=== PATIENT | male | born 1950 | race Caucasian/White ===

== ENCOUNTER 2017-09-16 21:48 | Inpatient (IN) | payer OTHER ==
[~2017-09-16] VITALS: Ht 172.7 cm; Wt 98.1 kg
[2017-09-16 21:57] VITALS: Ht 172.7 cm; Wt 98.1 kg
[2017-09-16 22:57] LABS: BASOPHIL % 0.4 % (0-2); PLATELET COUNT 262 x10^3mcL (130-400); RED CELL DISTRIBUTION WIDTH 14.5 % (11.5-14.5)
[2017-09-16 22:59] LABS: CALCIUM 8.5 mg/dL (8.5-10.1); CHLORIDE SERUM 101 mmol/L (98-107); CREATININE SERUM 0.9 mg/dL (0.7-1.3); GFR1 > 60 mL/min; GLUCOSE SERUM 122 mg/dL (74-106); POTASSIUM SERUM 3.9 mmol/L (3.5-5.1); SODIUM SERUM 138 mmol/L (136-145)
[2017-09-16 23:11] LABS: ALBUMIN 3.6 g/dL (3.4-5.0); ALKALINE PHOSPHATASE 123 U/L (46-116); ALT/SGPT 46 U/L (16-63); AST/SGOT 19 U/L (15-37); BILIRUBIN TOTAL 0.3 mg/dL (0.20-1.00); FREE T4 0.93 ng/dL (0.76-1.46); TOTAL PROTEIN, SERUM 7.7 g/dL (6.4-8.2)
[2017-09-17 00:41] LABS: MAGNESIUM 1.6 mg/dL (1.8-2.4); PHOSPHOROUS 2.3 mg/dL (2.5-4.9)
[2017-09-17] MEDS ORDERED: LOSARTAN POTASS1 TA8 PO (00:51)
[2017-09-17 00:52] VITALS: BP 117/64
[2017-09-17 00:52] LABS: FREE T4 0.93 ng/dL (0.76-1.46); FREE THYROXINE INDEX 2.5 ug/dL (1.4-4.5); T4(THYROXINE) 7.7 ug/dL (4.7-13.3)
[2017-09-17 02:11] LABS: T3 TOTAL 1.18 ng/mL
[2017-09-17] MEDS ORDERED: VENTOLIN H0.09 MG/A1 INH (02:11)
[2017-09-17] MEDS ORDERED: SYMBICORT1 AE2 INH (02:13)
[2017-09-17 03:30] LABS: microscopic required? NO
[2017-09-17 03:37] LABS: UA SPECIFIC GRAVITY >=1.030 (1.005-1.035); urine erythrocyte NEGATIVE (NEGATIVE)
[2017-09-17 03:46] LABS: AMPHETAMINE QUAL UR NONE DETECTED (NEG <=1000)
[2017-09-17 06:10] VITALS: BP 99/51
[2017-09-17 06:47] LABS: PLATELET COUNT 241 x10^3mcL (130-400); RED CELL DISTRIBUTION WIDTH 14.3 % (11.5-14.5)
[2017-09-17 07:02] LABS: BASOPHIL % 0 % (0-2)
[2017-09-17 09:10] VITALS: BP 140/81
[2017-09-17 10:45] LABS: CALCIUM 8.6 mg/dL (8.5-10.1); CARBON DIOXIDE 23.4 mmol/L (21-32); CHLORIDE SERUM 101 mmol/L (98-107); CREATININE SERUM 1.1 mg/dL (0.7-1.3); GFR1 > 60 mL/min; GLUCOSE SERUM 181 mg/dL (74-106); MAGNESIUM 2.3 mg/dL (1.8-2.4); PHOSPHOROUS 2.7 mg/dL (2.5-4.9); POTASSIUM SERUM 4.3 mmol/L (3.5-5.1); SODIUM SERUM 139 mmol/L (136-145)
[2017-09-17 14:38] VITALS: BP 126/61
[2017-09-17 17:07] VITALS: BP 119/50
[2017-09-17 20:25] VITALS: BP 120/62
[2017-09-18 04:58] VITALS: BP 136/67
[2017-09-18 06:19] LABS: BASOPHIL % 0.3 % (0-2); PLATELET COUNT 251 x10^3mcL (130-400)
[2017-09-18 06:56] LABS: CALCIUM 8.6 mg/dL (8.5-10.1); CARBON DIOXIDE 26.8 mmol/L (21-32); CHLORIDE SERUM 101 mmol/L (98-107); CREATININE SERUM 1.2 mg/dL (0.7-1.3); GFR1 > 60 mL/min; GLUCOSE SERUM 169 mg/dL (74-106); MAGNESIUM 2.4 mg/dL (1.8-2.4); PHOSPHOROUS 3.4 mg/dL (2.5-4.9); POTASSIUM SERUM 3.9 mmol/L (3.5-5.1); SODIUM SERUM 140 mmol/L (136-145)
[2017-09-18 09:15] VITALS: BP 106/67
[2017-09-18 13:52] VITALS: BP 113/64
[2017-09-18 17:31] VITALS: BP 141/74
[2017-09-18 20:27] VITALS: BP 126/65
[2017-09-19 05:29] VITALS: BP 139/75
[2017-09-19 07:30] LABS: BASOPHIL % 0.2 % (0-2); PLATELET COUNT 252 x10^3mcL (130-400)
[2017-09-19 07:50] LABS: RED CELL DISTRIBUTION WIDTH 15.2 % (11.5-14.5)
[2017-09-19 08:34] LABS: CALCIUM 8.6 mg/dL (8.5-10.1); CHLORIDE SERUM 103 mmol/L (98-107); CREATININE SERUM 0.9 mg/dL (0.7-1.3); GFR1 > 60 mL/min; GLUCOSE SERUM 113 mg/dL (74-106); SODIUM SERUM 143 mmol/L (136-145)
[2017-09-19 09:43] VITALS: BP 130/72
[2017-09-19 14:08] VITALS: BP 118/65
[2017-09-19 19:05] VITALS: BP 118/68
[2017-09-19 21:26] VITALS: BP 124/81
[2017-09-20 06:12] VITALS: BP 133/79
[2017-09-20 06:22] LABS: CALCIUM 8.6 mg/dL (8.5-10.1); CARBON DIOXIDE 32.7 mmol/L (21-32); CHLORIDE SERUM 104 mmol/L (98-107); CREATININE SERUM 0.9 mg/dL (0.7-1.3); GFR1 > 60 mL/min; GLUCOSE SERUM 105 mg/dL (74-106); POTASSIUM SERUM 4.3 mmol/L (3.5-5.1); SODIUM SERUM 143 mmol/L (136-145)
[2017-09-20 07:32] LABS: BASOPHIL % 0.3 % (0-2); PLATELET COUNT 245 x10^3mcL (130-400)
[2017-09-20 07:33] LABS: RED CELL DISTRIBUTION WIDTH 15.1 % (11.5-14.5)
[2017-09-20 08:19] VITALS: BP 120/59
[2017-09-20 14:08] VITALS: BP 106/56
[2017-09-20] MEDS ORDERED: LOSARTAN POTASS1 TA8 PO (14:36)
[2017-09-20] MEDS ORDERED: SYMBICORT1 AE2 INH (14:37)
[2017-09-20] MEDS ORDERED: ECO81 PO (14:50)
[2017-09-20] MEDS ORDERED: MEDDP PO (14:50)
[2017-09-20] MEDS ORDERED: COZ50 PO (14:50)
[2017-09-20] MEDS ORDERED: ALD25 PO (14:50)
[2017-09-20] MEDS ORDERED: LAC PO (14:58)
[2017-09-20] MEDS ORDERED: LEVAQUIN750 MG PO (14:58)
[2017-09-20 15:15] VITALS: BP 106/56
[2017-09-20 17:39] VITALS: BP 126/73
== END 2017-09-20 20:12 | disposition home health service (06) | DRG 177 ==
LOC: ED 21:48 → DU 23:41
PROVIDERS: Emergency Medicine; Family Medicine Sports Medicine
DX: J69.0 Pneumonitis due to inhalation of food and vomit (principal); N17.0 Acute kidney failure with tubular necrosis; J44.1 Chronic obstructive pulmonary disease with (acute) exacerbation; F10.288 Alcohol dependence with other alcohol-induced disorder; R06.03 Acute respiratory distress; R60.1 Generalized edema; K70.30 Alcoholic cirrhosis of liver without ascites; I48.0 Paroxysmal atrial fibrillation; E11.65 Type 2 diabetes mellitus with hyperglycemia; I10 Essential (primary) hypertension; E78.5 Hyperlipidemia, unspecified; E66.9 Obesity, unspecified; Z68.32 Body mass index [BMI] 32.0-32.9, adult; Z87.891 Personal history of nicotine dependence
CPT/HCPCS: 36600; 82962; 83880; 84439; 87804; 94150; 97110-GP; 97116-GP; 97530-GP; G0480; J1644; J1940; J1956; J2543; J2920; J2930; J3475; J3490; J7030; J7620; J7626; Q0092

== ENCOUNTER 2017-12-04 20:49 | Observation (INO) | payer OTHER ==
[~2017-12-04] VITALS: Ht 172.7 cm; Wt 99.4 kg
[~2017-12-04 20:49] MED LIST: ALD25 PO; COZ50 PO; ECO81 PO; LAC PO; LEVAQUIN750 MG PO; LOSARTAN POTASS1 TA8 PO; MEDDP PO; SYMBICORT1 AE2 INH; VENTOLIN H0.09 MG/A1 INH
[2017-12-04 21:05] VITALS: Ht 172.7 cm; Wt 99.4 kg
[2017-12-04 21:53] LABS: PLATELET COUNT 315 x10^3mcL (130-400); RED CELL DISTRIBUTION WIDTH 14.5 % (11.5-14.5)
[2017-12-04 21:56] LABS: BASOPHIL % 0 % (0-2)
[2017-12-04 22:33] LABS: CALCIUM 8.3 mg/dL (8.5-10.1); CARBON DIOXIDE 29.2 mmol/L (21-32); CHLORIDE SERUM 100 mmol/L (98-107); CREATININE SERUM 0.9 mg/dL (0.7-1.3); GFR1 > 60 mL/min; GLUCOSE SERUM 114 mg/dL (74-106); POTASSIUM SERUM 4.5 mmol/L (3.5-5.1); SODIUM SERUM 138 mmol/L (136-145)
[2017-12-04 22:38] LABS: ALKALINE PHOSPHATASE 106 U/L (46-116); ALT/SGPT 52 U/L (16-63); AST/SGOT 36 U/L (15-37); BILIRUBIN TOTAL 0.56 mg/dL (0.20-1.00); TOTAL PROTEIN, SERUM 7.4 g/dL (6.4-8.2)
[2017-12-04 22:44] LABS: ALBUMIN 3.1 g/dL (3.4-5.0)
[2017-12-05] VITALS (7 sets, daily range): BP systolic 112–152; BP diastolic 49–64
[2017-12-05] MEDS ORDERED: LIPITOR40 MG PO (00:48)
[2017-12-05] MEDS ORDERED: ATORVASTATIN CA40 M1 PO (00:49)
[2017-12-05] MEDS ORDERED: D3-50001 TAB PO (00:49)
[2017-12-05] MEDS ORDERED: [UNRECOGNIZED DRUG - CODE] SC (00:50)
[2017-12-05 01:34] LABS: MAGNESIUM 1.9 mg/dL (1.8-2.4)
[2017-12-05 01:35] LABS: CHOLESTEROL/HDL RATIO 5.2
[2017-12-05 01:46] LABS: T3 TOTAL 1.08 ng/mL
[2017-12-05 01:52] LABS: FREE T4 1.21 ng/dL (0.76-1.46); FREE THYROXINE INDEX 3.1 ug/dL (1.4-4.5); T4(THYROXINE) 8.7 ug/dL (4.7-13.3)
[2017-12-05 06:00] LABS: microscopic required? NO
[2017-12-05 06:16] LABS: AMPHETAMINE QUAL UR NONE DETECTED
[2017-12-05 06:53] LABS: CALCIUM 7.7 mg/dL (8.5-10.1); CARBON DIOXIDE 26.6 mmol/L (21-32); CHLORIDE SERUM 103 mmol/L (98-107); CREATININE SERUM 0.8 mg/dL (0.7-1.3); GFR1 > 60 mL/min; GLUCOSE SERUM 103 mg/dL (74-106); POTASSIUM SERUM 3.8 mmol/L (3.5-5.1); SODIUM SERUM 139 mmol/L (136-145)
[2017-12-05 07:15] LABS: BASOPHIL % 0.3 % (0-2); PLATELET COUNT 267 x10^3mcL (130-400)
[2017-12-05 07:16] LABS: RED CELL DISTRIBUTION WIDTH 14.7 % (11.5-14.5)
[2017-12-05 07:26] LABS: UA SPECIFIC GRAVITY <=1.005 (1.005-1.035); urine erythrocyte NEGATIVE (NEGATIVE)
[2017-12-05 07:58] LABS: CHOLESTEROL/HDL RATIO 5.5
[2017-12-06 05:38] VITALS: BP 120/56
[2017-12-06 07:08] LABS: CALCIUM 8.5 mg/dL (8.5-10.1); CARBON DIOXIDE 27.2 mmol/L (21-32); CHLORIDE SERUM 103 mmol/L (98-107); CREATININE SERUM 0.8 mg/dL (0.7-1.3); GFR1 > 60 mL/min; GLUCOSE SERUM 120 mg/dL (74-106); PHOSPHOROUS 3.6 mg/dL (2.5-4.9); POTASSIUM SERUM 3.9 mmol/L (3.5-5.1); SODIUM SERUM 140 mmol/L (136-145)
[2017-12-06 08:00] LABS: BASOPHIL % 0.8 % (0-2); PLATELET COUNT 312 x10^3mcL (130-400)
[2017-12-06 08:50] VITALS: BP 150/69
[2017-12-06] MEDS ORDERED: LEVAQUIN750 MG PO (09:06)
[2017-12-06] MEDS ORDERED: FLA500 PO (09:07)
[2017-12-06] MEDS ORDERED: LAC PO (09:08)
[2017-12-06 12:08] VITALS: BP 150/69
== END 2017-12-06 13:13 | disposition home or self-care (01) | DRG 872 ==
LOC: ED 20:49 → DU 12-05 00:56 → MU 12-05 11:06
PROVIDERS: Emergency Medicine; Student in an Organized Health Care Education/Training Program
DX: A41.9 Sepsis, unspecified organism (principal); L02.215 Cutaneous abscess of perineum; E44.0 Moderate protein-calorie malnutrition; E11.65 Type 2 diabetes mellitus with hyperglycemia; J44.9 Chronic obstructive pulmonary disease, unspecified; E83.51 Hypocalcemia; E83.39 Other disorders of phosphorus metabolism; D64.9 Anemia, unspecified; E78.5 Hyperlipidemia, unspecified; I10 Essential (primary) hypertension; E66.9 Obesity, unspecified; F10.20 Alcohol dependence, uncomplicated; K42.9 Umbilical hernia without obstruction or gangrene; Z68.33 Body mass index [BMI] 33.0-33.9, adult
CPT/HCPCS: 82962; 84439; 90715; 94150; G0378; G0480; J1885; J1956; J3490; J7030; J7620; J7633; Q0092

== ENCOUNTER 2019-01-01 09:35 | Inpatient (IN) | payer OTHER ==
[~2019-01-01] VITALS: Ht 172.7 cm; Wt 91.6 kg
[~2019-01-01 09:35] MED LIST changes: +ATORVASTATIN CA40 M1 PO; +D3-50001 TAB PO; +FLA500 PO; +LIPITOR40 MG PO; +[UNRECOGNIZED DRUG - CODE] SC
[2019-01-01 09:37] VITALS: Ht 172.7 cm; Wt 91.6 kg
--- NOTE | 2019-01-01 09:45 | NUR ---
PATIENT PRESENTS TO ED WITH SOB THAT HE STS STARTED LAST NIGHT. PATIENT DOES HAVE COPD AND HAS CHRONIC ISSUES WITH SOB, STS THAT HE IS CONSTANTLY ON OXYGEN AND HAS HIS OWN PORTABLE SUPPLY. PORTABLE OXYGEN WAS BIB PATIENT AND SITTING AT BEDSIDE. PATIENT WAS WHEELED INTO BEDSIDE, WAS ABLE TO AMBULATE FROM WHEELCHAIR TO BEDSIDE. BREATHING IS LABORED WITH BILATERAL CHEST RISE NOTED. CRACKLES NOTED BILATERALLY. PATIENT ABLE TO SPEAK IN FULL SENTENCES AND ANSWER ALL QUESTIONS. AAOX4 PERRLA GCS [address] GUSTAFSON AT BEDSIDE PERFORMED MSE.
--- NOTE | 2019-01-01 09:55 | NUR ---
RT AT BEDSIDE ADMINISTERING BREATHING TREATMENT
--- NOTE | 2019-01-01 10:03 | NUR ---
XRAY AT BEDSIDE
[2019-01-01 10:43] LABS: BASOPHIL % 0.5 % (0-2); PLATELET COUNT 232 x10^3mcL (130-400)
[2019-01-01 10:44] LABS: RED CELL DISTRIBUTION WIDTH 14.6 % (11.5-14.5)
[2019-01-01 10:45] LABS: CALCIUM 8.8 mg/dL (8.5-10.1); CARBON DIOXIDE 30.8 mmol/L (21-32); CHLORIDE SERUM 102 mmol/L (98-107); CREATININE SERUM 0.8 mg/dL (0.7-1.3); GFR1 > 60 mL/min; GLUCOSE SERUM 110 mg/dL (74-106); POTASSIUM SERUM 4.4 mmol/L (3.5-5.1); SODIUM SERUM 139 mmol/L (136-145)
[2019-01-01 10:50] LABS: ALBUMIN 3.5 g/dL (3.4-5.0); ALKALINE PHOSPHATASE 117 U/L (46-116); ALT/SGPT 33 U/L (16-63); AST/SGOT 10 U/L (15-37); BILIRUBIN TOTAL 0.48 mg/dL (0.20-1.00); TOTAL PROTEIN, SERUM 8.2 g/dL (6.4-8.2)
--- NOTE | 2019-01-01 10:50 | NUR ---
PATIENT RESTING AT BEDSIDE IN NAD. BREATHING E/U, BILATERAL CHEST RISE. PATIENT SEEN SMILING AT BEDSIDE. ASKED PATIENT FOR URINE AND PROVIDED URINAL, PATIENT STS HE WILL ATTEMPT TO PROVIDE URINE.
--- NOTE | 2019-01-01 11:10 | NUR ---
MD AT BEDSIDE PERFORMING RECTAL EXAM
--- NOTE | 2019-01-01 11:48 | NUR ---
PT RESTING AT BEDSIDE IN NAD
--- NOTE | 2019-01-01 11:48 | NUR ---
PATIENT STS HE CANNOT URINATE. DR. GUSTAFSON AWARE
[2019-01-01 13:20] LABS: microscopic required? NO
--- NOTE | 2019-01-01 13:26 | NUR ---
PATIENT RESTING AT BEDSIDE IN NAD. BREATHING E/U, BILATERAL CHEST RISE. BED AT LOWEST POSITION, CALL LIGHT IN REACH. PATIENT REQUESTS REMOTE CONTROL TO CHANGE CHANNEL AND REQUESTS HOB TO BE LIFTED.
[2019-01-01 13:31] LABS: urine erythrocyte NEGATIVE (NEGATIVE)
--- NOTE | 2019-01-01 14:21 | NUR ---
REPORT OFF TO AMADOU ANTUNEZ
--- NOTE | 2019-01-01 14:35 | NUR ---
RECEIVED PT VIA [employer] FROM E/D, ACCOMPANIED BY RN AND TRANSPORTER. PT A/A/O X 4, CALM, COOPERATIVE; WEARS GLASSES (W/ PT). GENERALIZED WEAKNESS, BUT ABLE TO AMBULATE W/ SLOW, STEADY GAIT W/ 1-PERSON ASSIST; USES CANE AT HOME, FALL RISK PROTOCOL IN PLACE. ON TELE # 11, HR 83, SR W/ PVC'S, DENIES CHEST PAIN OR DISCOMFORT AT THIS TIME. KELLE RADIAL AND PEDAL PULSES PRESENT, +1 PITTING EDEMA TO BLE, CAP REFILL < 3 SECS, SCD BY BEDSIDE. ABD SOFT, ROUND, NON-TENDER, NORMOACTIVE BOWEL SOUNDS X 4 QUADS, LAST BM 01/01/19, BLOODY, NON-THROMBOSED EXTERNAL HEMORRHOIDS NOTED, WEARS UPPER AND LOWER DENTURES. L LEE SCATTERED SCABS, JEREMIAH. IV SITE LH 20G, CDI. ORIENTED PT TO ROOM, BED CONTROLS, CALL LIGHT SYSTEM. SIDE RAILS UP X 2, BED IN LOW POSITION. WILL ENDORSE TO AMADOU DUNLAP.
--- NOTE | 2019-01-01 15:00 | NUR ---
PT RESTING IN BED COMFORTABLY. NO SOB NOTED THIS TIME. STABLE. DENIES ANY PAIN. WILL MONITOR.
[2019-01-01 15:16] VITALS: BP 149/109
[2019-01-01 15:46] VITALS: BP 149/109
--- NOTE | 2019-01-01 18:51 | NUR ---
PT REMAINS STABLE. NO SOB NOTED. DENIES ANY PAIN. WILL GIVE REPORT TO FOREIGN BANKNOTE TELLER TRADER NURSE.
--- NOTE | 2019-01-01 19:00 | NUR ---
RECEIVED PT SITTING AT THE EDGE OF THE BED. NO ACUTE RESPIRATORY DISTRESS NOTED.LUNG SOUND,BUL CRACKLES,BLL DIMINISHED. DENIES ANY PAIN AT THIS TIME. PT ON 4L NC,O2SAT 94% IV SITE PATENT AND INTACT. BED IN LOWEST POSITION,SIDERAILS UP.CALL LIGHT WITHIN REACH. WILL CONTINUE TO MONITOR.
[2019-01-01 20:28] VITALS: BP 149/78
[2019-01-02 04:57] VITALS: BP 160/79
--- NOTE | 2019-01-02 04:59 | NUR ---
PT AWAKE.NO DISTRESS NOTED.DENIES ANY PAIN AND DISCOMFORT.BED IN LOWEST POSITION,CALL LIGHT WITHIN REACH. WILL CONTINUE TO MONITOR.
[2019-01-02 06:22] LABS: CALCIUM 9.4 mg/dL (8.5-10.1); CARBON DIOXIDE 26.1 mmol/L (21-32); CHLORIDE SERUM 102 mmol/L (98-107); GFR1 > 60 mL/min; GLUCOSE SERUM 165 mg/dL (74-106); POTASSIUM SERUM 4.2 mmol/L (3.5-5.1); SODIUM SERUM 140 mmol/L (136-145)
[2019-01-02 06:35] LABS: PLATELET COUNT 250 x10^3mcL (130-400)
--- NOTE | 2019-01-02 07:16 | NUR ---
CARE ENDORSED TO DAY NURSE JANELLE.
[2019-01-02 07:18] LABS: BASOPHIL % 0 % (0-2); RED CELL DISTRIBUTION WIDTH 14.7 % (11.5-14.5)
--- NOTE | 2019-01-02 08:00 | NUR ---
ALERT AND ORIENTED. ON 02 4L NC. BREATHING SLIGHTLY LABORED. DENIES ANY PAIN. TELE # 11 SR-ST HR [id number]. INDEPENDENT W ADL'S. USES CANE AT HOME. BRP. RT PROTOCOL. RECEIVED SPUTUM SPECIMEN. TOOK TO LAB. SL TO LEFT HAND. CALL LIGHT WITHIN REACH.
[2019-01-02 08:25] VITALS: BP 134/56
[2019-01-02 12:51] VITALS: BP 134/65
[2019-01-02] MEDS ORDERED: DOXYCYCLINE MO100 MG PO (13:01)
[2019-01-02 13:15] VITALS: BP 134/65
[2019-01-02 13:19] VITALS: BP 134/64
--- NOTE | 2019-01-02 14:25 | NUR ---
DC'D TO HOME. WAITING FOR LAST BREATHING TREATMENT. IV DC'D TELE # 11 RETURNED TO TELE STATION. PRESCRIPTIONS GIVEN. PT TO CALL DR. BUTT FOR F/U BONNIE. ALL DC INSTRUCTIONS REVIEWED WITH AND SIGNED BY PT.
== END 2019-01-02 15:00 | disposition home health service (06) | DRG 193 ==
LOC: ED 09:35 → DU 13:51
PROVIDERS: Emergency Medicine; ADMIT Internal Medicine Pulmonary Disease
DX: J18.0 Bronchopneumonia, unspecified organism (principal); J96.21 Acute and chronic respiratory failure with hypoxia; J44.1 Chronic obstructive pulmonary disease with (acute) exacerbation; R54 Age-related physical debility; I10 Essential (primary) hypertension; E78.5 Hyperlipidemia, unspecified; K42.9 Umbilical hernia without obstruction or gangrene; Z87.891 Personal history of nicotine dependence; Z99.81 Dependence on supplemental oxygen
CPT/HCPCS: 36600; 83880; G0378; J0696; J1644; J1956; J2920; J2930; J3490; J7050; J7613; J7620; J7626; J7644; Q0092

== ENCOUNTER 2019-08-26 14:39 | Observation (INO) | payer OTHER ==
[~2019-08-26] VITALS: Ht 172.7 cm; Wt 93.9 kg
[~2019-08-26 14:39] MED LIST changes: +DOXYCYCLINE MO100 MG PO
[2019-08-26 14:58] VITALS: Ht 172.7 cm; Wt 93.9 kg
[2019-08-26 15:56] LABS: BASOPHIL % 0.1 % (0-2); PLATELET COUNT 237 x10^3mcL (130-400)
[2019-08-26 15:58] LABS: RED CELL DISTRIBUTION WIDTH 14.7 % (11.5-14.5)
[2019-08-26 16:03] LABS: CALCIUM 8.8 mg/dL (8.5-10.1); CARBON DIOXIDE 32.1 mmol/L (21-32); CHLORIDE SERUM 103 mmol/L (98-107); CREATININE SERUM 0.8 mg/dL (0.7-1.3); GFR1 > 60 mL/min; GLUCOSE SERUM 94 mg/dL (74-106); POTASSIUM SERUM 4.6 mmol/L (3.5-5.1); SODIUM SERUM 139 mmol/L (136-145)
[2019-08-26 16:09] LABS: ALBUMIN 3.7 g/dL (3.4-5.0); ALKALINE PHOSPHATASE 117 U/L (46-116); ALT/SGPT 31 U/L (16-63); AST/SGOT 16 U/L (15-37); BILIRUBIN TOTAL 0.42 mg/dL (0.20-1.00); TOTAL PROTEIN, SERUM 7.9 g/dL (6.4-8.2)
[2019-08-26 22:21] VITALS: BP 144/72
[2019-08-27 05:59] VITALS: BP 118/72
[2019-08-27 06:42] LABS: BASOPHIL % 0.5 % (0-2); PLATELET COUNT 219 x10^3mcL (130-400)
[2019-08-27 06:44] LABS: RED CELL DISTRIBUTION WIDTH 14.7 % (11.5-14.5)
[2019-08-27 07:25] LABS: CALCIUM 8.4 mg/dL (8.5-10.1); CARBON DIOXIDE 30.5 mmol/L (21-32); CHLORIDE SERUM 105 mmol/L (98-107); CREATININE SERUM 0.8 mg/dL (0.7-1.3); GFR1 > 60 mL/min; POTASSIUM SERUM 4.1 mmol/L (3.5-5.1); SODIUM SERUM 139 mmol/L (136-145)
[2019-08-27 07:33] LABS: GLUCOSE SERUM 100 mg/dL (74-106)
[2019-08-27 08:45] VITALS: BP 116/74
[2019-08-27 17:02] VITALS: BP 137/77
[2019-08-27 17:14] VITALS: BP 137/77
== END 2019-08-27 17:52 | disposition home or self-care (01) ==
LOC: ED 14:39 → MU 20:00
PROVIDERS: Emergency Medicine; ADMIT Internal Medicine Nephrology
DX: L03.116 Cellulitis of left lower limb (principal); J44.9 Chronic obstructive pulmonary disease, unspecified; J96.10 Chronic respiratory failure, unspecified whether with hypoxia or hypercapnia; I10 Essential (primary) hypertension
CPT/HCPCS: G0378; J1644; J2543; J3370; J3490; J7050